=== PATIENT | male | born 1995 | race Caucasian/White ===

== ENCOUNTER 2016-07-29 08:20 | Emergency (ER) | payer SELFPAY ==
[~2016-07-29] VITALS: Wt 63.0 kg
[2016-07-29] MEDS ORDERED: HYDROCODONE/APAP (5/325) TAB PO ONE (10:00)
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
--- NOTE | 2016-07-29 10:48 | RADRPT ---
PROCEDURE: XR Knee. CLINICAL INDICATION: Pain. TECHNIQUE: AP, lateral and oblique views of the right knee were obtained. The images reviewed on a PACS workstation. COMPARISON: None. FINDINGS: The bones appear intact, with no evidence of fracture, erosion, demineralization, or dislocation. Th e alignment of the femorotibial and patellofemoral joints appears normal. No joint space narrowing i s seen. No evidence of effusion or soft tissue swelling is present. IMPRESSION: Unremarkable examination of the right knee. RPTAT: QQ. .Chao Hernandez MD, Date Time Electronically viewed and signed by .Chao Hernandez MD, on 07/29/2016 10:48 .M/
--- NOTE | 2016-07-29 10:50 | RADRPT ---
PROCEDURE: XR Lumbar Spine. CLINICAL INDICATION: Lower back pain. TECHNIQUE: AP, lateral, and cone-down lateral views of the lumbar spine were obtained. COMPARISON: No prior studies are available for comparison. FINDINGS: There is normal vertebral mineralization and alignment. No fracture or subluxation is seen. The disc spaces are normal in appearance. The posterior elements are unremarkable. The soft tissues appear n ormal. IMPRESSION: Unremarkable exam. RPTAT: EE .Chao Hernandez MD, MD Date Time Electronically viewed and signed by .Chao Hernandez MD, MD on 07/29/2016 10:49 .M/
--- NOTE | 2016-07-29 11:02 | RADRPT ---
PROCEDURE: CT Brain without contrast. CLINICAL INDICATION: Trauma TECHNIQUE: A CT of the brain was performed utilizing axial imaging from the skull base through the vertex without IV contrast. Multiplanar reformatted images were made. Images were reviewed on a [employer] workstation. The CTDIvol is 45 mGy and the DLP is 630 mGycm. COMPARISON: None FINDINGS: There is no intracranial hemorrhage, mass effect, or midline shift. No extra-axial fluid collection is seen. The ventricles and sulci are normal in size and configuration. The density of the brain is normal, and the coleman white matter differentiation appears well-preserved. The visualized paranasal sinuses and osseous structures are grossly unremarkable. IMPRESSION: 1. No evidence of acute intracranial pathology. 2. The brain is normal in appearance. .Warren Sousa MD, Date Time Electronically viewed and signed by .Warren Sousa MD, on 07/29/2016 11:02 .A/
--- NOTE | 2016-07-29 11:05 | RADRPT ---
PROCEDURE: CT facial bones CLINICAL INDICATION: Trauma TECHNIQUE: A CT of the facial bones was performed utilizing high-resolution axial images. Sagitta l, coronal, and multiplanar reformatted images were made. Additionally, 3-D reformatted images were made. The CTDIvol is 30 mGy and the DLP is 565 mGy-cm. COMPARISON: None. FINDINGS: There is no facial fracture. The pterygoids are intact. Temporomandibular joints are intact with a natomic alignment. The ocular globes are normal with no evidence of rupture. No retrobulbar are or extra coronal hemorrhage is seen. No soft tissue hematoma is present. Polyps or mucous retention cysts are seen in the maxillary sinuses. Noted is spurring of the nasal septum to the right. IMPRESSION: Negative CT of the facial bones with no evidence of acute traumatic injury. No evidence of rupture of the globe. No renaldo ocular hemorrhage. No significant soft tissue swelling or hematoma. .Warren Sousa MD, MD Date Time Electronically viewed and signed by .Warren Sousa MD, on 07/29/2016 11:04 .A/
[2016-07-29] MEDS ORDERED: NAPR-260 PO (11:10)
[2016-07-29] MEDS ORDERED: TRAM50TA2 PO (11:11)
[2016-07-29] MEDS ORDERED: CYCL-319 PO (11:12)
== END 2016-07-29 11:26 | disposition home or self-care (01) ==
LOC: FTE 08:20
DX: S39.92XA Unspecified injury of lower back, initial encounter (principal); S89.91XA Unspecified injury of right lower leg, initial encounter; R51 Headache; V47.5XXA Car driver injured in collision with fixed or stationary object in traffic accident, initial encounter
CPT/HCPCS: 70450; 70486; 72100; 73562